=== PATIENT | male | born 1975 ===

== ENCOUNTER 2018-10-31 08:54 | Outpatient (CLI) | payer BC ==
--- NOTE | 2018-10-31 10:42 | ULT ---
RIGHT BREAST ULTRASOUND: HISTORY: Palpable painful mass at the 10 o'clock position of the right breast. TECHNIQUE: Multiplanar willoughby-scale and color Doppler images were obtained in a right breast ultrasound. FINDINGS: At the 10 o'clock position of the right breast, approximately 1 cm from the nipple, normal appearing tissue was seen in the subcutaneous tissues. No gynecomastia is seen. No solid mass or fluid collec tion is identified. IMPRESSION: BI-RADS category 1-Negative. POS: [facility]
--- NOTE | 2018-11-16 15:48 | MMO ---
Bilateral MAMMO Bilat Diag [facility]. CLINICAL HISTORY: Patient is 43 years old and is seen for diagnostic exam and lump or thickening in the right breast. The patient has no family history of breast cancer. The patient has no personal history of cancer. VIEWS: The views performed were: bilateral craniocaudal with tomosynthesis; bilateral mediolateral oblique with tomosynthesis; and bilateral mediolateral. FILMS COMPARED: The present examination has been compared to a prior imaging study performed at [facility] on 10/31/2018. MAMMOGRAM FINDINGS: The breasts are almost entirely fat. There are no suspicious masses, suspicious calcifications, or new areas of architectural distortion. IMPRESSION: THERE IS NO MAMMOGRAPHIC EVIDENCE OF MALIGNANCY. THE RESULTS OF THIS EXAM WERE SENT TO THE PATIENT. ACR BI-RADS Category 1 - Negative MAMMOGRAPHY NOTE: 1. A negative mammogram report should not delay a biopsy if a dominant of clinically suspicious mass is present. 2. Approximately 10% to 15% of breast cancers are not detected by mammography. 3. Adenosis and dense breasts may obscure an underlying neoplasm.
== END 2018-10-31 08:55 | disposition home or self-care (01) ==
LOC: BICMAMMO 08:54
PROVIDERS: ATTEND Specialist
DX: N63.11 Unspecified lump in the right breast, upper outer quadrant (principal)
CPT/HCPCS: 77066; G0279